=== PATIENT | male | born 1985 | race African-American/Black ===

== ENCOUNTER 2022-04-30 19:29 | Emergency (ER) | payer OTHER ==
[~2022-04-30] VITALS: Ht 162.6 cm; Wt 81.6 kg
[2022-04-30 19:38] VITALS: BP 149/84; TEMP 98.1
== END 2022-04-30 20:19 | disposition home or self-care (01) ==
LOC: ED 19:29
PROC: 0HQMXZZ Repair Right Foot Skin, External Approach (ICD-10-PCS; principal; 2022-04-30)
DX: S91.311A Laceration without foreign body, right foot, initial encounter (principal); W45.8XXA Other foreign body or object entering through skin, initial encounter; Y92.89 Other specified places as the place of occurrence of the external cause
CPT/HCPCS: 90471; 90715; 99283

== ENCOUNTER 2022-05-14 05:18 | Emergency (ER) | payer OTHER ==
[~2022-05-14] VITALS: Ht 162.6 cm; Wt 81.6 kg
[2022-05-14 05:29] VITALS: BP 127/79; TEMP 98.2
== END 2022-05-14 05:50 | disposition home or self-care (01) ==
LOC: ED 05:18
DX: Z48.02 Encounter for removal of sutures (principal)
CPT/HCPCS: 99282